=== PATIENT | male | born 1990 | race Caucasian/White ===

== ENCOUNTER 2017-01-10 21:57 | Emergency (ER) | payer OTHER ==
[~2017-01-10] VITALS: Ht 182.9 cm; Wt 90.0 kg
[2017-01-10 22:08] VITALS: BP 138/72; PULSE 97; RESP 20; TEMP 98.3; O2SAT 94
[2017-01-10 22:43] VITALS: BP 137/75; PULSE 72; RESP 18; O2SAT 100
[2017-01-10] MEDS ORDERED: SODIUM CHLOR 0.9% 1000 ML INJ 1,000 ML IV SCH (22:47)
--- NOTE | 2017-01-10 22:54 | PD ---
HPI Chief Complaint: Injury Time Seen by Provider: 22:47 Travel History International Travel<30 days: No Contact w/Intl Traveler<30days: No Traveled to known affect area: No History of Present Illness HPI Patient comes emergency Department for evaluation of right knee pain that began around 9:30 this evening. Patient states he's plan a flag football game and when he jumped to catch the ball either when he jumped when he came down he feels that he may have popped his patella tendon. Patient does report a history of an arthroscopic surgery on that knee. Patient states pain is worse with certain movement and improves with rest. Patient had his knee tape prior to coming to the emergency department denies anything else for this. Denies any numbness or tingling. Denies any radiation of the pain. Describes pain as a sharp stabbing-like in nature. PFSH Past Medical History Medical History: Denies Significant Hx Diminished Hearing: No Tetanus Vaccination: Unknown Influenza Vaccination: No Past Surgical History Other Surgery: Yes (RIGHT TOE) Social History Alcohol Use: Yes (OCCASSIONALLY) Tobacco Use: No [facility]: [facility] Allergies-Medications (Allergen,Severity, Reaction): Coded Allergies: No Known Allergies (Unverified , 01/10/17) Reported Meds & Prescriptions Reported Meds & Active Scripts Active Ibuprofen 600 Mg Tab 600 Mg PO Q8HR PRN Review of Systems Except as stated in HPI: all other systems reviewed are Neg Physical Exam Narrative GENERAL: Well-developed, well nourished, in no acute distress, and non-ill appearing. SKIN: Focused skin assessment warm and dry. HEAD: Atraumatic. Normocephalic. EYES: Pupils equal and round. EOMI. No scleral icterus. No injection or drainage. ENT: No nasal bleeding or discharge. Mucous membranes pink and moist. NECK: Trachea midline. Supple. No nuclear rigidity. CARDIOVASCULAR: Dorsal pulses 2+, intact, equal bilaterally. Capillary refill less than 2 seconds. RESPIRATORY: No accessory muscle use. No respiratory distress. MUSCULOSKELETAL: No obvious deformities. No clubbing. No cyanosis. No edema. Decreased range of motion of right knee. Patient reports he is unable to extend his right knee after passive flexion. Knee: Negative varus and valgus maneuvers. Positive anterior draw test and Nadja test on right knee. Pulses equal BL distal to injury. Capillary refill less than 2 seconds distal to injury and equal BL. FROM distal to injury and equal BL. NV intact distal to injury. Dorsal pulses equal BL. Sensation equal BL 1st web space. There is a large joint effusion noted over the right anterior knee. Appears to be a deficit over the inferior patella suspicious for a patella tendon injury. NEUROLOGICAL: Awake and alert. No obvious cranial nerve deficits. Motor grossly within normal limits. Normal speech. PSYCHIATRIC: Appropriate mood and affect; insight and judgment normal. Data Data Last Documented VS Vital Signs Date Time Temp Pulse Resp B/P (MAP) Pulse Ox O2 Delivery O2 Flow Rate FiO2 01/11/17 02:27 01/11/17 00:15 73 18 99 Room Air 01/10/17 22:08 98.3 Orders Orders Basic Metabolic Panel (Bmp) (01/10/17 22:47) Complete Blood Count With Diff (01/10/17 22:47) Prothrombin Time / Inr (Pt) (01/10/17 22:47) Act Partial Throm Time (Ptt) (01/10/17 22:47) Iv Access Insert/Monitor (01/10/17 22:47) Ecg Monitoring (01/10/17 22:47) Oximetry (01/10/17 22:47) Sodium Chloride 0.9% Flush (Ns Flush) (01/10/17 23:00) Knee, Complete (4vws) (01/10/17 ) Ice/Cold Pack (01/10/17 22:47) Morphine Inj (Morphine Inj) (01/10/17 23:00) Ondansetron Inj (Zofran Inj) (01/10/17 23:00) Sodium Chlor 0.9% 1000 Ml Inj (Ns 1000 M (01/10/17 22:47) Support Splint (01/11/17 01:52) Crutches (01/11/17 01:52) Ed Discharge Order (01/11/17 02:04) Immobilizer Knee 20 Inch (01/11/17 ) Labs Laboratory Tests Test 01/10/17 22:53 White Blood Count 13.4 TH/MM3 Red Blood Count 4.49 MIL/MM3 Hemoglobin 14.0 GM/DL Hematocrit 41.1 % Mean Corpuscular Volume 91.6 FL Mean Corpuscular Hemoglobin 31.2 PG Mean Corpuscular Hemoglobin Concent 34.1 % Red Cell Distribution Width 12.3 % Platelet Count 262 TH/MM3 Mean Platelet Volume 7.7 FL Neutrophils (%) (Auto) 82.8 % Lymphocytes (%) (Auto) 10.5 % Monocytes (%) (Auto) 6.4 % Eosinophils (%) (Auto) 0.2 % Basophils (%) (Auto) 0.1 % Neutrophils # (Auto) 11.1 TH/MM3 Lymphocytes # (Auto) 1.4 TH/MM3 Monocytes # (Auto) 0.9 TH/MM3 Eosinophils # (Auto) 0.0 TH/MM3 Basophils # (Auto) 0.0 TH/MM3 CBC Comment DIFF FINAL Differential Comment Prothrombin Time 11.3 SEC Prothromb Time International Ratio 1.0 RATIO Activated Partial Thromboplast Time 24.6 SEC Blood Urea Nitrogen 12 MG/DL Creatinine 1.17 MG/DL Random Glucose 85 MG/DL Calcium Level 9.6 MG/DL Sodium Level 137 MEQ/L Potassium Level 3.7 MEQ/L Chloride Level 103 MEQ/L Carbon Dioxide Level 28.0 MEQ/L Anion Gap 6 MEQ/L Estimat Glomerular Filtration Rate 75 ML/MIN [facility] Medical Decision Making Medical Screen Exam Complete: Yes Emergency Medical Condition: Yes Differential Diagnosis Fracture, sprain, tendon rupture, joint effusion, other Narrative Course Patient was seen and examined. Initial laboratory radiological studies were ordered. IV was established and patient was placed on cardiac monitoring. Patient is given IV morphine for pain and Zofran for nausea. Patient was signed out to Dr. Kimble at the end of my shift. Please see her documentation for final diagnosis and disposition. Scripts Ibuprofen (Ibuprofen) 600 Mg Tab 600 MG PO Q8HR Y for PAIN, #20 TAB 0 Refills Prov: Brittny Kimble DO 01/11/17 [place] Perrin Jan 10, 2017 22:54
[2017-01-10] MEDS ORDERED: MORPHINE SULFATE 4 MG/ML INJ IV PUSH ONE (23:00)
[2017-01-10] MEDS ORDERED: SODIUM CHLORIDE 0.9% FLUSH 10 ML FLUSH IV FLUSH PRN (23:00)
[2017-01-10] MEDS ORDERED: ONDANSETRON HCL 4 MG/2 ML VIAL IVP ONE (23:00)
[2017-01-10 23:01] VITALS: RESP 16; O2SAT 98
[2017-01-10 23:10] LABS: AUTOMATED NEUTROPHIL # 11.1 TH/MM3 (1.8-7.7); BASOPHIL % 0.1 % (0.0-2.0); EOSINOPHIL % 0.2 % (0.0-4.0); HEMATOCRIT 41.1 % (39.0-51.0); HEMO FLAGS DIFF FINAL; LYMPH % 10.5 % (9.0-44.0); LYMPHOCYTE # 1.4 TH/MM3 (1.0-4.8); MEAN CELL VOLUME 91.6 FL (80.0-100.0); MEAN CORPUSCULAR HEMOGLOBIN 31.2 PG (27.0-34.0); MEAN CORPUSCULAR HGB CONC 34.1 % (32.0-36.0); MONO % 6.4 % (0.0-8.0); NEUT % 82.8 % (16.0-70.0); PLATELET COUNT 262 TH/MM3 (150-450); RED BLOOD COUNT 4.49 MIL/MM3 (4.50-5.90); RED CELL DISTRIBUTION WIDTH 12.3 % (11.6-17.2); WHITE BLOOD COUNT 13.4 TH/MM3 (4.0-11.0)
[2017-01-10 23:35] LABS: APTT (PATIENT) 24.6 SEC (24.3-30.1); PROTHROMBIN TIME - PATIENT 11.3 SEC (9.8-11.6)
[2017-01-10 23:37] LABS: POTASSIUM 3.7 MEQ/L (3.5-5.1)
--- NOTE | 2017-01-10 23:57 | RADRPT ---
EXAM DATE/TIME: 01/10/2017 23:36 [place] COMPARISON: No previous studies available for comparison. INDICATIONS : Right knee pain. MEDICAL HISTORY : None. SURGICAL HISTORY : None. ENCOUNTER: Initial ACUITY: 1 day PAIN SCORE: 10 LOCATION: Right knee. FINDINGS: Four view examination of the right knee demonstrates no evidence of fracture or dislocation. Bony mi neralization is normal. The articular surfaces are intact. There is prepatellar soft tissue swelling . CONCLUSION: 1. Prepatellar soft tissue swelling versus bursitis. No acute bony abnormality. Iván Perez MD on January 10, 2017 at 23:55 Board Certified Radiologist. This report was verified electronically.
[2017-01-11 00:15] VITALS: BP 135/74; PULSE 73; RESP 18; O2SAT 99
[2017-01-11] MEDS ORDERED: IBUP-232 PO (02:03)
--- NOTE | 2017-01-11 02:04 | PD ---
Physical Exam Narrative I, Dr. Kimble, have reviewed the advance practice practitioner's documentation and am in agreement, met with the patient face to face, made the diagnosis, and the medical decision making was done by me. *My assessment and Findings: Patellar tendon rupture vs. anterior cruciate ligament tear vs. meniscal tear vs. fracture 26yo M presents to the ED with right knee swelling after playing football. Said he heard something pop. Pt has swelling in his right knee but does not want to flex it for me. Distal pulses intact. Tenderness diffusely. No erythema. No fever. Labs reviewed, mild leukocytosis at 13.4. BMP unremarkable. Xray right knee showed prepatellar soft tissue swelling vs. bursitis. No acute bony abnormality. Pt given morphine, zofran and NS IVF with improvement of pain. Informed that pt will need an MRI knee to further evaluate for injury but would not need an emergent MRI in the ED at night. Pt instructed to follow up with orthopedic surgeon today and schedule an appointment today. States he had arthroscopy right knee in [place] but does not have a orthopedic surgeon that he prefers. Will refer him to ours. Right knee placed in immobilizer and crutches given. Will give pain medication as well. Return precautions given. Data Data Last Documented VS Vital Signs Date Time Temp Pulse Resp B/P (MAP) Pulse Ox O2 Delivery O2 Flow Rate FiO2 01/11/17 00:15 73 18 135/74 (94) 99 Room Air 01/10/17 22:08 98.3 Orders Orders Basic Metabolic Panel (Bmp) (01/10/17 22:47) Complete Blood Count With Diff (01/10/17 22:47) Prothrombin Time / Inr (Pt) (01/10/17 22:47) Act Partial Throm Time (Ptt) (01/10/17 22:47) Iv Access Insert/Monitor (01/10/17 22:47) Ecg Monitoring (01/10/17 22:47) Oximetry (01/10/17 22:47) Sodium Chloride 0.9% Flush (Ns Flush) (01/10/17 23:00) Knee, Complete (4vws) (01/10/17 ) Ice/Cold Pack (01/10/17 22:47) Morphine Inj (Morphine Inj) (01/10/17 23:00) Ondansetron Inj (Zofran Inj) (01/10/17 23:00) Sodium Chlor 0.9% 1000 Ml Inj (Ns 1000 M (01/10/17 22:47) Support Splint (01/11/17 01:52) Crutches (01/11/17 01:52) Labs Laboratory Tests Test 01/10/17 22:53 White Blood Count 13.4 TH/MM3 Red Blood Count 4.49 MIL/MM3 Hemoglobin 14.0 GM/DL Hematocrit 41.1 % Mean Corpuscular Volume 91.6 FL Mean Corpuscular Hemoglobin 31.2 PG Mean Corpuscular Hemoglobin Concent 34.1 % Red Cell Distribution Width 12.3 % Platelet Count 262 TH/MM3 Mean Platelet Volume 7.7 FL Neutrophils (%) (Auto) 82.8 % Lymphocytes (%) (Auto) 10.5 % Monocytes (%) (Auto) 6.4 % Eosinophils (%) (Auto) 0.2 % Basophils (%) (Auto) 0.1 % Neutrophils # (Auto) 11.1 TH/MM3 Lymphocytes # (Auto) 1.4 TH/MM3 Monocytes # (Auto) 0.9 TH/MM3 Eosinophils # (Auto) 0.0 TH/MM3 Basophils # (Auto) 0.0 TH/MM3 CBC Comment DIFF FINAL Differential Comment Prothrombin Time 11.3 SEC Prothromb Time International Ratio 1.0 RATIO Activated Partial Thromboplast Time 24.6 SEC Blood Urea Nitrogen 12 MG/DL Creatinine 1.17 MG/DL Random Glucose 85 MG/DL Calcium Level 9.6 MG/DL Sodium Level 137 MEQ/L Potassium Level 3.7 MEQ/L Chloride Level 103 MEQ/L Carbon Dioxide Level 28.0 MEQ/L Anion Gap 6 MEQ/L Estimat Glomerular Filtration Rate 75 ML/MIN MDM Supervised Visit with JENIFFER: Yes Diagnosis Primary Impression: Right knee pain Qualified Codes: M25.561 - Pain in right knee Referrals: Cortez Mac MD call for appointment Right knee swelling concerning for ligament or patella tendon injury. Patient Instructions: General Instructions Departure Forms: Tests/Procedures Additional Instruction: Please call Dr. Mac's office today and follow up with him for evaluation of right knee injury. Return to the ED if symptoms worsen. Med/Other Pt SpecificInfo: Prescription(s) given Scripts Ibuprofen (Ibuprofen) 600 Mg Tab 600 MG PO Q8HR Y for PAIN, #20 TAB 0 Refills Prov: Brittny Kimble DO 01/11/17 Disposition: 01 DISCHARGE HOME Condition: Stable Brittny Kimble DO Jan 11, 2017 02:04
== END 2017-01-11 02:44 | disposition home or self-care (01) ==
LOC: NEPE 21:57
DX: M25.561 Pain in right knee (principal); X58.XXXA Exposure to other specified factors, initial encounter; Y93.61 Activity, american tackle football
CPT/HCPCS: 73564; 80048; 85025; 85610; 85730; 96361; 96374; 96375; 99284; E0113; J2270; J2405; J7030; L1830